=== PATIENT | male | born 1970 | race Caucasian/White ===

== ENCOUNTER → 2022-01-28 | Outpatient (CLI) | payer BC ==
--- NOTE | 2022-01-28 09:23 | MR ---
EXAMINATION TYPE: MR lumbar spine wo con DATE OF EXAM: 01/28/2022 8:08 AM COMPARISON: None. CLINICAL INDICATION:Male, 51 years old with history of [id number]; TECHNIQUE: Multi planar, multi sequence imaging was performed utilizing: T1-weighted, T2-weighted, a nd turbo inversion recovery imaging of the lumbar spine. IV Contrast: None FINDINGS: Alignment: The lumbar vertebral bodies have preserved heights and alignment. Cord: The conus medullaris and the distal spinal cord appear unremarkable with regards to their signa l intensity and morphology. Bones/Discs: Modic endplate changes most pronounced at L4-L5 and L5-S1. No evidence of abnormal bone marrow signal on inversion recovery sequences. Multilevel degenerative disc disease is noted and most pronounced at the L4-L5 and L5-S1. Disc desiccation at L5-S1. L1-L2: No significant disc pathology. Spinal canal is patent. The neural foramen are patent. L2-L3: No significant disc pathology. Spinal canal is patent. The neural foramen are patent. L3-L4: No significant disc pathology. Spinal canal is patent. The neural foramen are patent. L4-L5: There is a large central disc protrusion with superimposed extrusion of disc material inferior ly with 7 mm inferior migration. This in combination with facet arthropathy results in moderate to se bony spinal canal stenosis and moderate bilateral neural foraminal stenosis. L5-S1: Central disc extrusion without significant spinal canal stenosis. Facet joint arthropathy with moderate bilateral neural foraminal stenosis. Other findings: None. IMPRESSION: L4-L5 disc herniation with moderate to severe spinal canal stenosis. Superimposed extrusion with 7 mm inferior migration of disc material. Multilevel disc degeneration changes most pronounced at L4-5 and L5-S1.
== END | disposition home or self-care (01) ==
LOC: RADMRIMAIN 07:31
PROVIDERS: ATTEND Family Medicine
DX: M51.17 Intervertebral disc disorders with radiculopathy, lumbosacral region (principal)
CPT/HCPCS: 72148